=== PATIENT | male | born 1990 | race Caucasian/White ===

== ENCOUNTER 2021-05-11 08:23 | Emergency (ER) | payer OTHER ==
[~2021-05-11] VITALS: Ht 175.3 cm; Wt 68.0 kg
[2021-05-11 08:27] VITALS: BP_SYST 134
--- NOTE | 2021-05-11 08:27 | NUR ---
Patient to ER bed 7 to gown for evaluation. Side rails up. LILLIAM RAY AT THE BEDSIDE
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
--- NOTE | 2021-05-11 08:37 | NUR ---
ER DR. DRUMMOND AT THE BEDSIDE EXAMINING PT.
[2021-05-11] MEDS ORDERED: cefTRIAXone 250 MG in LIDOCAINE 1%, 20 ML MDV 0.9 ML IM ONE (08:45)
[2021-05-11] MEDS ORDERED: IBUPROFEN 600 MG TABLET PO ONE (08:45)
[2021-05-11] MEDS ORDERED: AZITHROMYCIN 250 MG TABLET PO ONE (08:45)
[2021-05-11] MEDS ORDERED: LIDOCAINE 1%, 20 ML MDV 20 ML ONE (08:48)
--- NOTE | 2021-05-11 08:55 | NUR ---
SWAB DONE OF PENILE DISCHARGE, OFFICER PRESENT. PT THEN ABLE TO PROVIDE A URINE SAMPLE WITH URINAL
--- NOTE | 2021-05-11 09:09 | NUR ---
PORTABLE X-RAY AT THE BEDSIDE
--- NOTE | 2021-05-11 09:41 | NUR ---
Patient given written and verbal discharge instructions and verbalizes understanding. ER MD discussed with patient the results and treatment provided. Patient in stable condition. ID arm band removed. NO Rx given. Patient educated on pain management and to follow up with PMD. Pain Scale 0/10. Opportunity for questions provided and answered. Medication side effect fact sheet provided. ESCORTED BY OFFICER LILLIAM NORMAN [id number].
[2021-05-11 09:42] VITALS: BP_SYST 132
[2021-05-14 09:50] LABS: CHLAMYDIA TRACHOMATIS NAA Positive (Negative); NEISSERIA GONORRHOEAE NAA Positive (Negative)
--- NOTE | 2021-05-14 10:38 | NUR ---
Message left for patient to call ER in regards to lab results. Positive Chlamydia and Positive Gonorrhoeae results rec'd and reported to Dr. Briggs, Dr. Briggs recalfredds to return to ER for further evaluation and possible tx. [phone]
--- NOTE | 2021-05-14 17:27 | NUR ---
CALL RECEIVED FROM LAB MRSA+ FROM URETHRAL SPECIMEN. PT INSTRUCTED TO RETURN TO ER VIA VOICEMAIL FOR FURTHER TX
== END 2021-05-11 09:42 | disposition home or self-care (01) ==
LOC: SED 08:23
DX: S93.402A Sprain of unspecified ligament of left ankle, initial encounter (principal); N34.2 Other urethritis; V18.4XXA Pedal cycle driver injured in noncollision transport accident in traffic accident, initial encounter; Y93.89 Activity, other specified; Y92.89 Other specified places as the place of occurrence of the external cause; Y99.8 Other external cause status
CPT/HCPCS: 73610; 87070; 87491; 87591; 96372; 99284; J0696; J2001; Q0144; 87186-TC